=== PATIENT | female | born 2000 | race Caucasian/White ===

== ENCOUNTER 2023-02-20 08:52 | Emergency (ER) | payer OTHER ==
[~2023-02-20] VITALS: Ht 160 cm; Wt 65.9 kg
[2023-02-20 09:00] VITALS: TEMP 97.9
[2023-02-20 09:37] LABS: BASO # 0.1 K/mm3 (0.0-0.2); BASO % 0.6 % (0.0-2.0); EOS # 0.2 K/mm3 (0.0-0.7); GRAN # 7.7 K/mm3 (1.4-6.5); GRAN % 74.4 % (42.2-75.2); HEMATOCRIT 45.9 % (37.0-47.0); HEMOGLOBIN 15.3 g/dl (12.5-16.0); LYMPH # 1.7 K/mm3 (1.2-3.4); LYMPH % 16.2 % (20.0-51.0); MEAN CELL VOLUME 89 fl (80.0-100.0); MEAN CORPUSCULAR HEMOGLOBIN 30 pg (27-31); MEAN CORPUSCULAR HGB CONC 33 g/dl (33.0-37.0); MEAN PLATELET VOLUME 10.6 fl (7.4-10.4); MONO # 0.7 K/mm3 (0.1-0.6); MONO % 6.3 % (1.7-9.3); PLATELET COUNT 225 K/mm3 (130-400); RED BLOOD COUNT 5.16 M/mm3 (4.10-5.30); REDCELL DISTRIBUTION WIDTH-CV 12.1 % (11.5-14.5)
[2023-02-20 09:49] LABS: ALBUMIN 4.1 gm/dL (3.5-5.0); BILIRUBIN,TOTAL 0.6 mg/dL (0.2-1.2); CALCIUM 9.4 mg/dL (8.4-10.2); CREATININE, serum 0.93 mg/dL (0.57-1.11); POTASSIUM 3.7 mmol/L (3.5-4.5); TOTAL PROTEIN 7.7 gm/dL (6.2-8.1)
[2023-02-20 10:29] LABS: COLLECTION METHOD CLEAN CATCH; PH 5.5 (5.0-8.5); URINE APPEARANCE Turbid (CLEAR/HAZY); URINE BLOOD 3+ (NEGATIVE); URINE COLOR OTHER (YELLOW); URINE GLUCOSE Negative (NEGATIVE); URINE KETONE 1+ (NEGATIVE); URINE NITRATE Negative (NEGATIVE); URINE PROTEIN(semi-quant) 2+ (NEGATIVE); URINE UROBILINOGEN 0.2 E.U/dL (0.2-1.0)
[2023-02-20 10:30] LABS: SQUAMOUS EPITHELIAL 0-2 /hpf (0-10); URINE BACTERIA Many /hpf (NONE SEEN); URINE WBC 20-50 /hpf (0-2)
[2023-02-20] MEDS ORDERED: ZOFRAN ODT4 MG PO (11:59)
[2023-02-20] MEDS ORDERED: CEPHALEXIN250 M1 PO (11:59)
[2023-02-20 12:24] VITALS: BP 110/73; PULSE 71
== END 2023-02-20 12:24 | disposition home or self-care (01) ==
LOC: COL.ER 08:52
PROVIDERS: Emergency Medicine
DX: N39.0 Urinary tract infection, site not specified (principal); R31.9 Hematuria, unspecified; R82.71 Bacteriuria
CPT/HCPCS: J1885; J2405